=== PATIENT | male | born 1995 | race Caucasian/White ===

== ENCOUNTER 2023-04-24 06:57 | Emergency (ER) | payer MEDICARE, SELFPAY ==
[2023-04-24 07:04] VITALS: BP 144/88
[2023-04-24 07:39] VITALS: BMI 51.1
--- NOTE | 2023-04-24 08:36 | ED.GENMED ---
History of Present Illness
General
Chief Complaint: Back Pain
Source: patient and family
Exam Limitations: none
Time Seen by Provider: 04/24/23 07:41
Nursing documentation reviewed up to this point in time: agreed with
Travel History
Have you had any contact with someone who has COVID-19?: No
Do you have any symptoms of coronavirus? Fever > 100 degrees, chills, cough, shortness of breath, sore throat, loss of taste or smell, muscle aches, or headache?: No
History of Present Illness
History of Present Illness:
Patient is a 27-year-old male who presents to the ER for evaluation of back pain and vomiting. Patient started with back pain yesterday and describes pain as lower back. He was simply standing cooking breakfast when this back pain started. Denies
any injury. He had pain throughout the day and continued throughout the night and was not able to sleep because of the pain. He then vomited multiple times this morning and had cold sweats. He has never had this back pain in the past.
Past History
Past History
ED Past Medical History: None
ED Past Surgical History: None
Social History
Tobacco: Non-smoker
Alcohol: None
Drug: None
Personal: Single
Living: with family
Family History
Family History: Other
Review of Systems
Review of Systems
Allergies reviewed?: Yes
All Other Systems: ROS reviewed and negative except as documented in HPI and ROS
Constitutional: Reports no symptoms; Denies fever, fatigue or chills
Respiratory: Reports no symptoms
Cardiac: Reports no symptoms
ABD/GI: Reports no symptoms; Denies abdominal pain, nausea or vomiting
Skin: Reports no symptoms
Neurological: Reports no symptoms
Psychiatric: Reports no symptoms
Phy Exam
General Physical Exam
General Presentation: no apparent distress
General age: appears stated age
General Skin: warm and dry
General Habitus: normal
General Mental: alert
Cardiovascular Exam
Cardiovascular Exam: regular rate/rhythm, no murmur and normal peripheral pulses
Pulmonary Exam
Pulmonary Exam: lungs clear and no respiratory distress
Neurological Exam
Neurological Exam: alert and oriented x3
Musculoskeletal Exam
Musculoskeletal Exam: full ROM and other ( no midline back tenderness nml inspection to back )
Skin Exam
Skin Exam: normal color and warm/dry
Psychiatric Exam
Psychiatric Exam: normal mood/affect
Course
Orders/Labs/Results
Orders:
Orders
04/24/23 08:31
IV Insert/Care/Rem.- Treatment PRN
0.9% Sodium Chloride 1000 ml [Nss] 1,000 ml IV BOLUS
Ketorolac [Toradol] 15 mg IV NOW STA
04/24/23 08:33
CT Abd/pel Without Iv Or Oral Urgent
Comment:
Reason For Exam: flank pain
04/24/23 08:58
Complete Blood Count/With Diff Urgent
Comprehensive Metabolic Panel Urgent
Lipase Urgent
04/24/23 11:34
Urinalysis Reflex To Culture Urgent
Date Specimen was Collected: 04/24/23
Time Specimen was Collected: 08:51
Urine Microscopic Reflex Cult Urgent
Abnormal Lab Results
04/24/23 04/24/23
08:58 11:34
Absolute Neuts (auto) 7.5 H 10^3/uL
(1.4-6.5)
Neutrophils % 79.4 H %
(42.2-75.2)
Lymphocytes % 14.7 L %
(20.5-51.1)
Urine Ketones 3+ A
(Negative)
Urine Bilirubin 1+ A
(Negative)
Urine Urobilinogen 3+ A
(Neg - 1+)
Leukocyte Esterase Rfl Trace A
(Negative)
04/24/23 08:58
04/24/23 08:58
Vital Signs
Initial and Last Documented VS:
Initial Vital Signs
Temp Pulse Resp BP Pulse Ox
99.0 F 110 16 144/88 98
04/24/23 07:04 04/24/23 07:04 04/24/23 07:04 04/24/23 07:04 04/24/23 07:04
Last Documented Vital Signs
Temp Pulse Resp BP Pulse Ox
99.0 F 100 18 106/88 97
04/24/23 07:04 04/24/23 10:58 04/24/23 10:58 04/24/23 10:58 04/24/23 10:58
MDM/Problems Addressed
Differential Diagnosis Includes:
Not limited to muscular back pain, renal colic, less likely pyelonephritis, UTI
MDM/Problems Addressed:
Symptoms are likely musculoskeletal back pain. Patient has no injury however her CAT scan was performed to ensure no stone. CAT scan negative for urinary tract calculus unremarkable labs we will check urine if urine negative will DC home with
Motrin
*Radiology
Radiology exam reviewed: radiology read reviewed
*Pulse Oximetry
Patient hypoxic: no
*Critical Care Note
Total Time (30-74mins, 75-104mins- exclusive of procedures): Not Applicable
ED Attending Note
-
Portions of this chart may have been created with voice recognition software.� Occasional wrong word or��sound alike� substitutions may have occurred due to the inherent limitations of voice recognition software.
Discharge Plan
Departure
Patient Disposition: Home (Routine Discharge)
Date of Disposition: 04/24/23
Time of Disposition: 12:24
Patient with high blood pressure during this ER visit?: No
Condition: Fair
Covid-19: Not Applicable
Discharge Problem:
Back pain
Instructions: Low Back Pain (DC)
Prescriptions:
No Action
No Current Medications
0
Referrals:
Topkis,Odilon, DO [Family Provider] -
Activity Restrictions/Additional Instructions:
As discussed CAT scan and labs are unremarkable. Symptoms are consistent musculoskeletal back pain
ibuprofen 600 mg every hours with food. Follow-up with family doctor in next several days.
return if any worsening of symptoms
Interventions
Interventions:
*Risk Screen - Suicide Last Done: 04/24/23 07:38
*General Assessment Last Done: 04/24/23 07:38
*Neglect/Abuse Screening Last Done: 04/24/23 07:38
ED- Fall Risk Assessment Last Done: 04/24/23 10:58
*ED COVID-19 Vaccine History Last Done: 04/24/23 07:04
ED-Musculoskeletal Assessment Last Done: 04/24/23 10:58
[2023-04-24] MEDS: NSS 1000 IV (08:52)
[2023-04-24] MEDS: TORADOL 15 MG IV (08:52)
[2023-04-24 08:56] VITALS: BP 103/91
[2023-04-24 09:09] LABS: % Basophils 0.4 % (0-2); % Eosinophils 0.6 % (0-6); % Immature Granulocytes 0.4 % (0-0.5); % Lymphocytes 14.7 % (20.5-51.1); % Monocytes 4.5 % (1.7-9.3); % Neutrophils 79.4 % (42.2-75.2); Absolute Eosinophils 0.1 10^3/uL (0-0.7); Absolute Lymphocytes 1.4 10^3/uL (1.2-3.4); Absolute Monocytes 0.4 10^3/uL (0.1-0.6); Absolute Neutrophils 7.5 10^3/uL (1.4-6.5); Hemoglobin 14.2 g/dL (13.0-18.0); Mean Corp Hgb Conc. 33.8 g/dL (33.0-37.0); Mean Corpuscular Hgb 28.5 pg (27.0-31.0); Mean Corpuscular Volume 84.3 fL (80.0-94.0); Mean Platelet Volume 9.3 fL (7.4-10.4); Nucleated Red Blood Cells % 0 % (-); Platelet Count 336 10^3/uL (130-400); Red Blood Cell Count 4.98 10^6/uL (4.70-6.10); Red Cell Dist. Width 12.9 % (11.5-14.5); White Blood Cell Count 9.5 10^3/uL (4.8-10.8)
[2023-04-24 09:26] LABS: ALT (SGPT) 37 U/L (0-50); AST (SGOT) 34 U/L (17-59); Albumin 4.1 g/dl (3.5-5.0); Alkaline Phosphatase 107 U/L (38-126); Blood Urea Nitrogen 12 mg/dl (9-20); Calcium 9.5 mg/dl (8.4-10.2); Carbon Dioxide 26 mmol/L (22-30); Chloride 104 mmol/L (98-107); Estimated Creatinine Clearance > 125 ml/min; Glucose 98 mg/dl (70-99); Lipase 106 U/L (23-300); Potassium 4.8 mmol/L (3.5-5.1); Sodium 135 mmol/L (135-145); Total Bilirubin 0.8 mg/dl (0.2-1.3); eGFR > 60.00
[2023-04-24 10:58] VITALS: BP 106/88
[2023-04-24 11:44] LABS: Urine Albumin Trace (Neg - Trace); Urine Bilirubin 1+ (Negative); Urine Character Clear (Clear); Urine Color Yellow; Urine Glucose Negative (Negative); Urine Ketone 3+ (Negative); Urine Leukocyte Trace (Negative); Urine Nitrite Negative (Negative); Urine Occult Blood Negative (Negative); Urine Urobilinogen 3+ (Neg - 1+)
[2023-04-24 12:02] LABS: Urine Mucus Many
[2023-04-24 12:03] LABS: Urine Red Blood Cell None Seen /HPF (0-2); Urine White Cell 0-2 /HPF (0-5)
== END 2023-04-24 12:44 | disposition home or self-care (01) ==
LOC: EMR 06:57
PROVIDERS: Nurse Practitioner; EMERGENCY PHYSICIAN Emergency Medicine; FAMILY PHYSICIAN Family Medicine
DX: M54.9 Dorsalgia, unspecified (principal); R11.2 Nausea with vomiting, unspecified
CPT/HCPCS: 99284; 96374; 96361; 74176; 80053; 81003; 81015; 83690; 85025

== ENCOUNTER 2024-08-09 05:43 | Emergency (ER) | payer MEDICARE, SELFPAY ==
[2024-08-09] VITALS (7 sets, daily range): BP systolic 125–168; BP diastolic 82–105; BMI 51.5
--- NOTE | 2024-08-09 07:31 | ED.GENMED ---
History of Present Illness
General
Chief Complaint: Abdominal Pain
Time Seen by Provider: 08/09/24 07:31
History of Present Illness
History of Present Illness:
TIME OF INITIAL ENCOUNTER: 7:40 AM
HPI: Patient presents with abdominal pain associated with nausea and vomiting. It was abrupt in onset that started around 130 this morning. Yesterday, the patient had urinary hesitancy. The pain is now primarily in the right lower quadrant of the
abdomen. He vomited twice.
EXAM:
GENERAL: Well appearing in no distress, elevated BMI
HEENT: Moist oral mucosa, poor dentition
CARDIOVASCULAR: No murmurs, normal heart rate, regular rhythm, No chest wall tenderness
PULMONARY: No respiratory distress, breath sounds are clear and equal
ABDOMEN: Soft with no peritoneal signs, mild right lower quadrant tenderness, no CVA tenderness
NEUROLOGIC: Excellent strength all extremities, no coordination deficits
PSYCHIATRIC: Appropriate mental status, normal insight and judgement
EXTREMITIES: Nontender, no edema, moves all extremities equally
SKIN: No rash, no lesions
NUMBER AND COMPLEXITY OF PROBLEMS ADDRESSED AT THE ENCOUNTER
� Chronic conditions affecting care: Has had cholecystectomy
� Acute Exacerbation and/or Progression of Chronic Illness: This is an acute problem
� Differential Diagnosis includes: Appendicitis, mesenteric adenitis, epiploic appendagitis, ureteral stone
AMOUNT AND/OR COMPLEXITY OF DATA TO BE REVIEWED AND ANALYZED
� I performed an independent evaluation of and my interpretation is:
EKG:
CT: CT shows a 2 mm distal right ureteral stone, normal appendix
X-rays:
Laboratory Studies: White count 10.9, hemoglobin normal, chemistries unremarkable
Other:
� Review of other/old records: Into , the patient was admitted for biliary colic and had cholecystectomy
� Clinical information was obtained by an independent historian: I spoke to mother at bedside
� Prescriptions/Medications Considered but not given:
� Further testing considered but not performed:
RISK OF COMPLICATIONS AND/OR MORBIDITY OR MORTALITY OF PATIENT MANAGEMENT
� Social determinants of health affecting care: Lives at home
� Discussion with other providers:
� Escalation of care including admission/observation vs risk of discharge considered: The patient was given a Dilaudid initially however CT imaging shows a small distal stone. Toradol and Flomax were also given. He was given IV
fluids.
ANY OTHER UPDATES:
On reassessment, the patient appears fairly comfortable. Distal stone is noted which is small. Placed on narcotic analgesia, recommend NSAIDs, will give antiemetic and Flomax as well.
Past History
Past History
ED Past Medical History: None
ED Past Surgical History: None
Social History
Tobacco: Non-smoker
Alcohol: None
Drug: None
Personal: Single
Living: with family
Family History
Family History: Other
Phy Exam
Physical Exam
Physical Exam:
See HPI
Course
Orders/Labs/Results
Orders:
Orders
08/09/24 07:43
CT Abd/pelvis W Iv Cont Urgent
Comment:
Reason For Exam: RLQ pain
0.9% Sodium Chloride 1000 ml [Nss] 1,000 ml IV BOLUS
HYDROmorphone [Dilaudid] 1 mg IV NOW STA
Ondansetron Injectable [Zofran] 4 mg IV NOW STA
08/09/24 07:59
CMP [Comprehensive Metabolic Panel] Urgent
Complete Blood Count/With Diff Urgent
08/09/24 09:24
Ketorolac [Toradol] 15 mg IV NOW STA
08/09/24 09:29
Tamsulosin [Flomax] 0.4 mg PO NOW STA
08/09/24 09:37
Urinalysis Reflex To Culture Urgent
Date Specimen was Collected: 08/09/24
Time Specimen was Collected: 09:30
Urine Microscopic Reflex Cult Urgent
Urine Culture Urgent
PENELOPE Source: U
Specimen Description:
Date Specimen was Collected: 08/09/24
Time Specimen was Collected: 09:30
Abnormal Lab Results
08/09/24 08/09/24
07:59 09:37
WBC 10.9 H 10^3/uL
(4.8-10.8)
Absolute Neuts (auto) 9.1 H 10^3/uL
(1.4-6.5)
Neutrophils % 84.1 H %
(42.2-75.2)
Lymphocytes % 11.5 L %
(20.5-51.1)
Glucose 123 H mg/dl
(70-99)
Calcium 10.4 H mg/dl
(8.4-10.2)
Urine Ketones 3+ A
(Negative)
Ur Occult Blood Reflex 4+ A
(Negative)
Leukocyte Esterase Rfl 3+ A
(Negative)
Urine RBC >100 A /HPF
(0-2)
Urine WBC (Reflex) 11-15 A /HPF
(0-5)
Urine Bacteria (Reflex) Moderate A
(Negative)
Urine Albumin (Reflex) 2+ A
(Neg - Trace)
08/09/24 07:59
08/09/24 07:59
Vital Signs
Initial and Last Documented VS:
Initial Vital Signs
Temp Pulse Resp BP Pulse Ox
37.0 C 72 20 168/104 97
08/09/24 05:46 08/09/24 05:46 08/09/24 05:46 08/09/24 05:46 08/09/24 05:46
Last Documented Vital Signs
Temp Pulse Resp BP Pulse Ox
37.0 C 80 16 125/88 97
08/09/24 05:46 08/09/24 10:15 08/09/24 10:15 08/09/24 11:00 08/09/24 11:15
*Critical Care Note
Total Time (30-74mins, 75-104mins- exclusive of procedures): Not Applicable
ED Attending Note
-
Portions of this chart may have been created with voice recognition software.� Occasional wrong word or��sound alike� substitutions may have occurred due to the inherent limitations of voice recognition software.
Discharge Plan
Departure
Patient Disposition: Home (Routine Discharge)
Date of Disposition: 08/09/24
Time of Disposition: 11:18
Patient with high blood pressure during this ER visit?: Yes
Discharge Problem:
Right distal ureteral calculus
Instructions: Kidney Stones (DC), BLOOD PRESSURE
Prescriptions:
New
oxycodone-acetaminophen [Percocet] 5-325 mg tablet
1 - 2 tab PO Q6HPRN PRN (Reason: pain) Qty: 14 0RF
ondansetron HCl 4 mg tablet
4 mg PO Q6H PRN (Reason: nausea and vomiting) Qty: 12 0RF
tamsulosin [Flomax] 0.4 mg capsule
0.4 mg PO DAILY Qty: 14 0RF
cephalexin 500 mg capsule
500 mg PO TID Qty: 15 0RF
Referrals:
Margarito Su MD [Active] - Follow up in 2-3 days
Hu Gaxiola DO [Family Provider] -
Activity Restrictions/Additional Instructions:
Urinalysis shows blood which is commonly seen with kidney stones that are stuck in the ureter. You do have a 2 mm stone in the distal (far down part near the bladder) right ureter. This should pass on its own. I recommend 3-4 [id number]
ibuprofen (Motrin) every 8 hours with food for a few days. There is only questionable signs of infection in the urinary tract but I have placed you on antibiotics for a few days in case you truly have. I have given you the contact information for
a local urologist to follow-up with, Dr. Su. I am sending a prescription for Percocet (narcotic pain medication), Zofran (nausea medicine), and Flomax (may help promote stone passage) to your pharmacy.
Interventions
Interventions:
*Risk Screen - Suicide Last Done: 08/09/24 05:46
*General Assessment Last Done: 08/09/24 07:48
*Neglect/Abuse Screening Last Done: 08/09/24 05:46
*ED- Fall Risk Assessment Last Done: 08/09/24 07:48
*ED COVID-19 Vaccine History Last Done: 08/09/24 07:48
*Nursing Disposition Last Done: 08/09/24 11:34
XD-Hoblvt-Htjjmsiwch Assessment Last Done: 08/09/24 09:00
Discharge Date and Time
Discharge Date/Time: 08/09/24 11:35
Print Language: ARMENIAN
[2024-08-09] MEDS: DILAUDID 1 MG IV (07:56)
[2024-08-09] MEDS: NSS 1000 IV (07:57)
[2024-08-09] MEDS: ZOFRAN 4 MG IV (07:57)
[2024-08-09 08:10] LABS: % Basophils 0.4 % (0-2); % Eosinophils 0.3 % (0-6); % Immature Granulocytes 0.4 % (0-0.5); % Lymphocytes 11.5 % (20.5-51.1); % Monocytes 3.3 % (1.7-9.3); % Neutrophils 84.1 % (42.2-75.2); Absolute Lymphocytes 1.3 10^3/uL (1.2-3.4); Absolute Monocytes 0.4 10^3/uL (0.1-0.6); Absolute Neutrophils 9.1 10^3/uL (1.4-6.5); Hematocrit 43.8 % (39.0-52.0); Hemoglobin 14.7 g/dL (13.0-18.0); Mean Corp Hgb Conc. 33.6 g/dL (33.0-37.0); Mean Corpuscular Hgb 28.4 pg (27.0-31.0); Mean Corpuscular Volume 84.6 fL (80.0-94.0); Mean Platelet Volume 9.6 fL (7.4-10.4); Nucleated Red Blood Cells % 0 % (-); Platelet Count 339 10^3/uL (130-400); Red Blood Cell Count 5.18 10^6/uL (4.70-6.10); Red Cell Dist. Width 13.2 % (11.5-14.5); White Blood Cell Count 10.9 10^3/uL (4.8-10.8)
[2024-08-09 08:18] LABS: ALT (SGPT) 41 U/L (0-50); AST (SGOT) 33 U/L (17-59); Albumin 4.2 g/dl (3.5-5.0); Alkaline Phosphatase 96 U/L (38-126); Blood Urea Nitrogen 13 mg/dl (9-20); Calcium 10.4 mg/dl (8.4-10.2); Carbon Dioxide 27 mmol/L (22-30); Chloride 104 mmol/L (98-107); Estimated Creatinine Clearance > 125 ml/min; Glucose 123 mg/dl (70-99); Potassium 4.7 mmol/L (3.5-5.1); Sodium 140 mmol/L (135-145); Total Protein 7.2 g/dl (6.3-8.2); eGFR > 60.00
[2024-08-09] MEDS: FLOMAX 0.4 MG PO (09:33)
[2024-08-09] MEDS: TORADOL 15 MG IV (09:33)
[2024-08-09 09:44] LABS: Urine Albumin 2+ (Neg - Trace); Urine Bilirubin Negative (Negative); Urine Character Clear (Clear); Urine Color Yellow; Urine Glucose Negative (Negative); Urine Ketone 3+ (Negative); Urine Leukocyte 3+ (Negative); Urine Nitrite Negative (Negative); Urine Occult Blood 4+ (Negative); Urine Urobilinogen Negative (Neg - 1+)
[2024-08-09 10:38] LABS: Urine Bacteria Moderate (Negative); Urine Red Blood Cell >100 /HPF (0-2)
[2024-08-09 10:39] LABS: Urine Mucus Few
== END 2024-08-09 11:35 | disposition home or self-care (01) ==
LOC: EMR 05:43
PROVIDERS: Emergency Medicine; EMERGENCY PHYSICIAN Emergency Medicine; FAMILY PHYSICIAN Family Medicine
DX: N20.1 Calculus of ureter (principal); R39.11 Hesitancy of micturition
CPT/HCPCS: 99284; 96375 ×2; 96361 ×2; 96374; 74177; 80053; 81003; 81015; 85025; 87086; Q9967